=== PATIENT | male | born 1970 | race Caucasian/White ===

== ENCOUNTER 2017-10-01 11:13 | Emergency (ER) | payer SELFPAY ==
[~2017-10-01] VITALS: Ht 175.3 cm; Wt 86.5 kg
[2017-10-01 12:37] LABS: HEMATOCRIT 48.5 % (38.0-50.0); MCH 29.6 PG (29.0-34.0); MCV 89.6 FL (86-99); PLATELET COUNT 257 K/uL (156-360); RED BLOOD COUNT 5.41 M/uL (4.00-5.50)
[2017-10-01 12:50] LABS: CHLORIDE 107 mEq/L (99-109); POTASSIUM 4.2 mEq/L (3.7-5.4); SODIUM 141 mEq/L (136-147)
[2017-10-01 12:52] LABS: GLUCOSE 74 mg/dL (70-99)
[2017-10-01 12:55] LABS: CREATININE 0.8 mg/dL (0.6-1.3)
[2017-10-01 12:56] LABS: UREA NITROGEN (BUN) 14 mg/dL (9-23)
[2017-10-01 13:02] LABS: GFR ESTIMATE (CALCULATED) > 59 mL/min/ (58.99-99999)
[2017-10-01] MEDS ORDERED: PREDNISONE20 MG PO (14:02)
[2017-10-01] MEDS ORDERED: VENTOLIN HFA18 GM IH (14:11)
[2017-10-01 14:14] VITALS: BP 126/77
== END 2017-10-01 14:35 | disposition home or self-care (01) ==
LOC: EME 11:13
DX: J45.901 Unspecified asthma with (acute) exacerbation (principal); J06.9 Acute upper respiratory infection, unspecified; F17.200 Nicotine dependence, unspecified, uncomplicated
CPT/HCPCS: 71046; 80048; 85027; 94640; 99202; 99281; 99284; J7512